=== PATIENT | male | born 1970 | race Caucasian/White ===

== ENCOUNTER 2017-01-03 08:00 | Outpatient (CLI) | payer OTHER ==
[2017-01-03 14:07] LABS: ALBUMIN/GLOBULIN RATIO 1.5 (1.0-2.2); BILIRUBIN,TOTAL 0.6 mg/dL (0.2-1.0); BUN - BLOOD UREA NITROGEN 11 mg/dL (6-20); CALCIUM 9.5 mg/dL (8.5-10.3); CARBON DIOXIDE - CO2 26 mmol/L (21-32); CHLORIDE 101 mmol/L (101-111); CHOL/HDL RATIO 2.9 (<5.0); CHOLESTEROL 156 mg/dL; CREATININE 0.6 mg/dL (0.6-1.2); GFR - MDRD 146 (>89); GLUCOSE 107 mg/dL (70-100); HDL CHOLESTEROL 54 mg/dL; LDL/HDL RATIO 1.6 (<3.6); POTASSIUM 3.8 mmol/L (3.5-5.0); SODIUM 137 mmol/L (135-145); TOTAL PROTEIN 7.7 g/dL (6.7-8.2); TRIGLYCERIDES 80 mg/dL; VLDL CHOLESTEROL 16 mg/dL
[2017-01-03 14:13] LABS: HEMOGLOBIN A1C 0.92 g/dL
== END 2017-01-03 08:01 | disposition home or self-care (01) ==
LOC: LAB.WCP 08:00
PROVIDERS: ATTEND Family Medicine
DX: E11.9 Type 2 diabetes mellitus without complications (principal); Z72.0 Tobacco use
CPT/HCPCS: 36415; 80053; 80061; 82043; 83036

== ENCOUNTER 2017-03-28 12:52 | Outpatient (CLI) | payer OTHER ==
[2017-03-28 12:49] LABS: ALBUMIN/GLOBULIN RATIO 1.6 (1.0-2.2); BILIRUBIN,TOTAL 0.8 mg/dL (0.2-1.0); CALCIUM 9.7 mg/dL (8.5-10.3); CREATININE 0.7 mg/dL (0.6-1.2); POTASSIUM 3.8 mmol/L (3.5-5.0); TOTAL PROTEIN 7.9 g/dL (6.7-8.2)
[2017-03-28 12:55] LABS: HEMOGLOBIN A1C 1.01 g/dL
== END 2017-03-28 12:53 | disposition home or self-care (01) ==
LOC: LAB.WCP 12:52
PROVIDERS: ATTEND Family Medicine
DX: E11.9 Type 2 diabetes mellitus without complications (principal)
CPT/HCPCS: 36415; 80053; 82043; 83036

== ENCOUNTER 2017-11-04 07:50 | Outpatient (CLI) | payer OTHER ==
[2017-11-04 13:01] LABS: ALBUMIN 3.8 g/dL (3.2-5.5); BILIRUBIN,TOTAL 0.4 mg/dL (0.2-1.0); CALCIUM 8.8 mg/dL (8.5-10.3); CREATININE 0.7 mg/dL (0.6-1.2); TOTAL PROTEIN 7.5 g/dL (6.7-8.2)
[2017-11-04 13:09] LABS: HB2 TOTAL 17.9 g/dL; HEMOGLOBIN A1C 1.07 g/dL; HEMOGLOBIN A1C % 7.6 % (4.6-6.2)
== END 2017-11-04 07:51 | disposition home or self-care (01) ==
LOC: LAB.WCP 07:50
PROVIDERS: ATTEND Family Medicine
DX: E11.9 Type 2 diabetes mellitus without complications (principal)
CPT/HCPCS: 36415; 80053; 83036

== ENCOUNTER 2018-01-27 08:48 | Outpatient (CLI) | payer OTHER ==
[2018-01-27 13:37] LABS: ALBUMIN 4.3 g/dL (3.2-5.5); ALBUMIN/GLOBULIN RATIO 1.3 (1.0-2.2); BILIRUBIN,TOTAL 0.9 mg/dL (0.2-1.0); CALCIUM 8.7 mg/dL (8.5-10.3); CREATININE 0.6 mg/dL (0.6-1.2); TOTAL PROTEIN 7.5 g/dL (6.7-8.2)
[2018-01-27 14:07] LABS: HB2 TOTAL 17.1 g/dL; HEMOGLOBIN A1C 1.05 g/dL; HEMOGLOBIN A1C % 7.8 % (4.6-6.2)
== END 2018-01-27 08:49 | disposition home or self-care (01) ==
LOC: LAB.WCP 08:48
PROVIDERS: ATTEND Family Medicine
DX: Z83.3 Family history of diabetes mellitus (principal)
CPT/HCPCS: 36415; 80053; 83036

== ENCOUNTER 2018-05-13 09:30 | Outpatient (CLI) | payer OTHER ==
[2018-05-13 12:52] LABS: CALCIUM 8.9 mg/dL (8.5-10.3); CREATININE 0.7 mg/dL (0.6-1.2)
[2018-05-13 13:16] LABS: HB2 TOTAL 16.5 g/dL; HEMOGLOBIN A1C 1.07 g/dL; HEMOGLOBIN A1C % 8.1 % (4.6-6.2)
== END 2018-05-13 23:59 | disposition home or self-care (01) ==
LOC: LAB.WCP 09:30
PROVIDERS: ATTEND Physician Assistant
DX: Z83.3 Family history of diabetes mellitus (principal)
CPT/HCPCS: 36415; 80048; 83036

== ENCOUNTER 2018-08-27 09:05 | Outpatient (CLI) | payer OTHER ==
[2018-08-27 13:22] LABS: CALCIUM 9.5 mg/dL (8.5-10.3); CREATININE 0.7 mg/dL (0.6-1.2)
[2018-08-27 14:02] LABS: HEMOGLOBIN A1C 1.09 g/dL
== END 2018-08-27 09:06 | disposition home or self-care (01) ==
LOC: LAB.WCP 09:05
PROVIDERS: ATTEND Family Medicine
DX: E78.5 Hyperlipidemia, unspecified (principal); E11.9 Type 2 diabetes mellitus without complications
CPT/HCPCS: 36415; 80048; 83036

== ENCOUNTER 2018-12-18 08:00 | Outpatient (CLI) | payer OTHER ==
[2018-12-18 12:33] LABS: BASOPHILS # (AUTO) 0.1 10^3/uL (0.0-0.1); BASOPHILS % (AUTO) 0.8 %; EOSINOPHILS # (AUTO) 0.2 10^3/uL (0.0-0.7); EOSINOPHILS % (AUTO) 2.2 %; HGB - HEMOGLOBIN 15.5 g/dL (14.0-18.0); LYMPHOCYTES # (AUTO) 2.7 10^3/uL (1.5-3.5); LYMPHOCYTES % (AUTO) 29.6 %; MEAN CORPUSCULAR VOLUME 87.8 fL (80.0-94.0); MONOCYTES # (AUTO) 0.8 10^3/uL (0.0-1.0); MONOCYTES % (AUTO) 8.9 %; NEUTROPHILS # (AUTO) 5.4 10^3/uL (1.5-6.6); NEUTROPHILS % (AUTO) 58.1 %; PLT - PLATELET COUNT 323 10^3/uL (130-450); RED BLOOD COUNT 5.34 10^6/uL (4.70-6.10); RED CELL DISTRIBUTION WIDTH 13.3 % (12.0-15.0); WHITE BLOOD COUNT 9.2 x10^3/uL (4.8-10.8)
[2018-12-18 12:44] LABS: ALBUMIN 4.5 g/dL (3.2-5.5); ALBUMIN/GLOBULIN RATIO 1.4 (1.0-2.2); ALKALINE PHOSPHATASE 50 IU/L (42-121); ALT ALANINE AMINOTRANSFERASE 72 IU/L (10-60); AST ASPARTATE AMINOTRANSFERASE 35 IU/L (10-42); BILIRUBIN,TOTAL 0.7 mg/dL (0.2-1.0); BUN - BLOOD UREA NITROGEN 13 mg/dL (6-20); CARBON DIOXIDE - CO2 28 mmol/L (21-32); CHLORIDE 102 mmol/L (101-111); CHOL/HDL RATIO 3.5 (<5.0); CHOLESTEROL 182 mg/dL; CREATININE 0.7 mg/dL (0.6-1.2); GFR - MDRD 121 (>89); GLUCOSE 107 mg/dL (70-100); HDL CHOLESTEROL 52 mg/dL; LDL CHOLESTEROL,CALCULATED 112 mg/dL; LDL/HDL RATIO 2.2 (<3.6); SODIUM 137 mmol/L (135-145); TOTAL PROTEIN 7.7 g/dL (6.7-8.2); VLDL CHOLESTEROL 18 mg/dL
[2018-12-18 12:45] LABS: CREATININE,URINE 42.8 mg/dL; MICROALBUM/CREATININE RATIO,UR 49.1 ug/mg (<30.0); MICROALBUMIN,URINE 2.1 mg/dL (0-300.0)
[2018-12-18 13:13] LABS: HB2 TOTAL 16.1 g/dL; HEMOGLOBIN A1C 1.24 g/dL; HEMOGLOBIN A1C % 9.2 % (4.6-6.2)
== END 2018-12-18 23:59 | disposition home or self-care (01) ==
LOC: LAB.WCP 08:00
PROVIDERS: ATTEND Family Medicine
DX: E11.9 Type 2 diabetes mellitus without complications (principal); E78.5 Hyperlipidemia, unspecified
CPT/HCPCS: 36415; 80053; 80061; 82043; 82570; 83036; 83721; 85025

== ENCOUNTER 2019-06-15 08:42 | Outpatient (CLI) | payer OTHER ==
[2019-06-15 12:17] LABS: CALCIUM 8.9 mg/dL (8.5-10.3); CREATININE 0.8 mg/dL (0.6-1.2)
[2019-06-15 12:30] LABS: CREATININE,URINE 89.1 mg/dL; HB2 TOTAL 16.9 g/dL; HEMOGLOBIN A1C 1.02 g/dL; HEMOGLOBIN A1C % 7.7 % (4.6-6.2); MICROALBUMIN,URINE 3.3 mg/dL (0-300.0)
== END 2019-06-15 23:59 | disposition home or self-care (01) ==
LOC: LAB.WCP 08:42
PROVIDERS: ATTEND Family Medicine
DX: E11.9 Type 2 diabetes mellitus without complications (principal); E78.5 Hyperlipidemia, unspecified
CPT/HCPCS: 36415; 80048; 82043; 82570; 83036

== ENCOUNTER 2019-09-12 16:25 | Emergency (ER) | payer OTHER ==
[2019-09-12 16:35] VITALS: BP 129/67
--- NOTE | 2019-09-12 16:50 | ED Physician Documentation ---
History of Present Illness - Stated complaint Stated Complaint: LT EAR IRRITATION - Chief complaint Chief Complaint: Heent - History obtained from History obtained from: Patient (48-year-old gentleman with diabetes presents with 2 days of left ear pain and drainage. He says he had it once before about 8 years ago, but does not remember the specific diagnosis or treatment. He denies fevers. No other upper respiratory symptoms. The entirety of the history was taken using the [employer] leach runner tablet as the patient speaks Tagalog.) Review of Systems Constitutional: denies: Fever, Chills Ears: denies: Loss of hearing, Ear pain Nose: denies: Rhinorrhea / runny nose, Congestion PD PAST MEDICAL HISTORY - Past Medical History Past Medical History: Yes Endocrine/Autoimmune: Type 2 diabetes - Past Surgical History Past Surgical History: No - Present Medications Home Medications: Ambulatory Orders Medication Instructions Recorded Confirmed Ciprofloxacin HCl [Cipro] 500 mg PO BID #20 tablet 09/12/19 Neomycin/Polymyx/Hc Otic Drops 4 drops OT TID #1 bottle 09/12/19 [Cortisporin Ear Susp] - Allergies Allergies/Adverse Reactions: Allergies Allergy/AdvReac Type Severity Reaction Status Date / Time No Known Drug Allergies Allergy Verified 09/12/19 16:28 - Social History Does the pt smoke?: No Smoking Status: Never smoker Does the pt drink ETOH?: No Does the pt have substance abuse?: No - Immunizations Immunizations are current?: Yes - POLST Patient has POLST: No PD ED PE NORMAL - Vitals Vital signs reviewed: Yes - General General: Alert and oriented X 3, No acute distress - HEENT HEENT: Other (He has external otitis on the left, not occlusive. No mastoid tenderness. No obvious adenopathy.) - Neuro Neuro: Alert and oriented X 3, Normal speech Results - Vitals Vitals: Vital Signs - 24 hr 09/12/19 16:29 Temperature 37 C Heart Rate 87 Respiratory 18 Rate Blood Pressure 129/67 O2 Saturation 98 Oxygen O2 Source Room air PD MEDICAL DECISION MAKING - ED course ED course: This is a gentleman with diabetes and external otitis, the diabetes does merit treatment with oral antibiotics given the increased risk of malignant otitis externa or mastoiditis with the underlying diabetes. Departure - Departure Disposition: 01 Home, Self Care Clinical Impression: External otitis of left ear Qualifiers: Otitis externa type: other infective Chronicity: acute Qualified Code(s): H60.392 - Other infective otitis externa, left ear Condition: Good Record reviewed to determine appropriate education?: Yes Instructions: ED Otitis Externa Prescriptions: Ciprofloxacin HCl [Cipro] 500 mg PO BID #20 tablet Neomycin/Polymyx/Hc Otic Drops [Cortisporin Ear Susp] 4 drops OT TID #1 bottle Comments: Karen meléndez-follow-up appointment, ariane almaraz appointment. elva Crain sintoarabella tatum. Discharge Date/Time: 09/12/19 17:07
== END 2019-09-12 17:07 | disposition home or self-care (01) ==
LOC: ED 16:25
DX: H60.392 Other infective otitis externa, left ear (principal); E11.9 Type 2 diabetes mellitus without complications
CPT/HCPCS: 99282

== ENCOUNTER 2019-12-07 09:44 | Outpatient (CLI) | payer OTHER ==
[2019-12-07 12:11] LABS: BASOPHILS # (AUTO) 0.1 10^3/uL (0.0-0.1); BASOPHILS % (AUTO) 0.9 %; EOSINOPHILS # (AUTO) 0.2 10^3/uL (0.0-0.7); EOSINOPHILS % (AUTO) 2.6 %; HGB - HEMOGLOBIN 15.7 g/dL (14.0-18.0); LYMPHOCYTES # (AUTO) 2.3 10^3/uL (1.5-3.5); LYMPHOCYTES % (AUTO) 24.9 %; MEAN CORPUSCULAR HEMOGLOBIN 30.5 pg (27.0-31.0); MEAN CORPUSCULAR HGB CONC 34.5 g/dL (32.0-36.0); MEAN CORPUSCULAR VOLUME 88.3 fL (80.0-94.0); MEAN PLATELET VOLUME 9.9 fL (7.4-11.4); MONOCYTES # (AUTO) 0.6 10^3/uL (0.0-1.0); MONOCYTES % (AUTO) 6.4 %; NEUTROPHILS % (AUTO) 64.9 %; PLT - PLATELET COUNT 323 10^3/uL (130-450); RED BLOOD COUNT 5.15 10^6/uL (4.70-6.10); RED CELL DISTRIBUTION WIDTH 13.1 % (12.0-15.0); WHITE BLOOD COUNT 9.3 x10^3/uL (4.8-10.8)
[2019-12-07 12:41] LABS: ALBUMIN 4.6 g/dL (3.2-5.5); ALBUMIN/GLOBULIN RATIO 1.6 (1.0-2.2); BILIRUBIN,TOTAL 0.7 mg/dL (0.2-1.0); CALCIUM 9.2 mg/dL (8.5-10.3); CREATININE 0.7 mg/dL (0.6-1.2); TOTAL PROTEIN 7.5 g/dL (6.7-8.2)
[2019-12-07 12:52] LABS: HB2 TOTAL 16.6 g/dL; HEMOGLOBIN A1C 0.84 g/dL; HEMOGLOBIN A1C % 6.8 % (4.6-6.2)
== END 2019-12-07 23:59 | disposition home or self-care (01) ==
LOC: LAB.WCP 09:44
PROVIDERS: ATTEND Physician Assistant
DX: E11.9 Type 2 diabetes mellitus without complications (principal)
CPT/HCPCS: 36415; 80053; 83036; 85025

== ENCOUNTER 2020-05-02 08:00 | Outpatient (CLI) | payer OTHER ==
[2020-05-02 12:21] LABS: CREATININE,URINE 28.7 mg/dL; MICROALBUM/CREATININE RATIO,UR 20.9 ug/mg (<30.0); MICROALBUMIN,URINE 0.6 mg/dL (0-300.0)
[2020-05-02 13:07] LABS: HEMOGLOBIN A1c% 7.7 % (4.27-6.07)
[2020-05-02 13:20] LABS: CALCIUM 9.3 mg/dL (8.5-10.3); CREATININE 0.7 mg/dL (0.6-1.2)
== END 2020-05-02 23:59 ==
LOC: LAB.WCP 08:00
PROVIDERS: ATTEND Family Medicine
DX: E11.9 Type 2 diabetes mellitus without complications (principal)
CPT/HCPCS: 36415; 80048; 82043; 82570; 83036

== ENCOUNTER 2020-09-21 08:00 | Outpatient (CLI) | payer OTHER ==
[2020-09-21 12:28] LABS: ALBUMIN 4.5 g/dL (3.2-5.5); ALBUMIN/GLOBULIN RATIO 1.6 (1.0-2.2); ALKALINE PHOSPHATASE 49 IU/L (42-121); ALT ALANINE AMINOTRANSFERASE 40 IU/L (10-60); AST ASPARTATE AMINOTRANSFERASE 21 IU/L (10-42); BILIRUBIN,TOTAL 0.6 mg/dL (0.2-1.0); BUN - BLOOD UREA NITROGEN 15 mg/dL (6-20); CALCIUM 8.6 mg/dL (8.5-10.3); CARBON DIOXIDE - CO2 26 mmol/L (21-32); CHLORIDE 100 mmol/L (101-111); CHOLESTEROL 158 mg/dL; CREATININE 0.6 mg/dL (0.6-1.2); GFR - MDRD 144 (>89); GLUCOSE 216 mg/dL (70-100); HDL CHOLESTEROL 53 mg/dL; LDL CHOLESTEROL,CALCULATED 89 mg/dL; LDL/HDL RATIO 1.7 (<3.6); POTASSIUM 4.6 mmol/L (3.5-5.0); SODIUM 134 mmol/L (135-145); TOTAL PROTEIN 7.4 g/dL (6.7-8.2); TRIGLYCERIDES 82 mg/dL; VLDL CHOLESTEROL 16 mg/dL
[2020-09-21 12:40] LABS: THYROID STIMULATING HORMONE 1.95 uIU/mL (0.34-5.60)
[2020-09-21 12:41] LABS: ESTIMATED AVERAGE GLUCOSE 214 mg/dL (70-100); HEMOGLOBIN A1c% 9.1 % (4.27-6.07)
[2020-09-21 13:15] LABS: CREATININE,URINE 104.3 mg/dL; MICROALBUM/CREATININE RATIO,UR 70.9 ug/mg (<30.0); MICROALBUMIN,URINE 7.4 mg/dL (0-300.0)
== END 2020-09-21 23:59 | disposition home or self-care (01) ==
LOC: LAB.WCP 08:00
PROVIDERS: ATTEND Family Medicine
DX: E11.9 Type 2 diabetes mellitus without complications (principal); E78.5 Hyperlipidemia, unspecified
CPT/HCPCS: 36415; 80053; 80061; 82043; 82570; 83036; 83721; 84443

== ENCOUNTER 2021-01-09 09:13 | Outpatient (CLI) | payer OTHER ==
[2021-01-09 12:32] LABS: CALCIUM 9.4 mg/dL (8.5-10.3); CREATININE 0.7 mg/dL (0.6-1.2)
[2021-01-09 14:14] LABS: ESTIMATED AVERAGE GLUCOSE 180 mg/dL (70-100); HEMOGLOBIN A1c% 7.9 % (4.27-6.07)
== END 2021-01-09 23:59 | disposition home or self-care (01) ==
LOC: LAB.WCP 09:13
PROVIDERS: ATTEND Family Medicine
DX: R80.9 Proteinuria, unspecified (principal); E11.9 Type 2 diabetes mellitus without complications
CPT/HCPCS: 36415; 80048; 83036

== ENCOUNTER 2021-04-03 09:31 | Outpatient (CLI) | payer OTHER ==
[2021-04-03 12:47] LABS: CALCIUM 9.2 mg/dL (8.5-10.3); CREATININE 0.6 mg/dL (0.6-1.2); POTASSIUM 3.6 mmol/L (3.5-5.0)
[2021-04-03 12:57] LABS: ESTIMATED AVERAGE GLUCOSE 180 mg/dL (70-100); HEMOGLOBIN A1c% 7.9 % (4.27-6.07)
[2021-04-03 12:59] LABS: CREATININE,URINE 69.7 mg/dL; MICROALBUM/CREATININE RATIO,UR 48.8 ug/mg (<30.0); MICROALBUMIN,URINE 3.4 mg/dL (0-300.0)
== END 2021-04-03 23:59 | disposition home or self-care (01) ==
LOC: LAB.WCP 09:31
PROVIDERS: ATTEND Family Medicine
DX: E11.65 Type 2 diabetes mellitus with hyperglycemia (principal); R80.9 Proteinuria, unspecified
CPT/HCPCS: 36415; 80048; 82043; 82570; 83036

== ENCOUNTER 2021-06-26 09:03 | Outpatient (CLI) | payer OTHER ==
[2021-06-26 13:00] LABS: BASOPHILS % (AUTO) 0.4 %; EOSINOPHILS # (AUTO) 0.3 10^3/uL (0.0-0.7); EOSINOPHILS % (AUTO) 2.6 %; HCT - HEMATOCRIT 44.4 % (42.0-52.0); HGB - HEMOGLOBIN 15.5 g/dL (14.0-18.0); LYMPHOCYTES # (AUTO) 2.3 10^3/uL (1.5-3.5); LYMPHOCYTES % (AUTO) 21.6 %; MEAN CORPUSCULAR HEMOGLOBIN 30.5 pg (27.0-31.0); MEAN CORPUSCULAR HGB CONC 34.9 g/dL (32.0-36.0); MEAN CORPUSCULAR VOLUME 87.4 fL (80.0-94.0); MEAN PLATELET VOLUME 10.2 fL (7.4-11.4); MONOCYTES # (AUTO) 0.7 10^3/uL (0.0-1.0); MONOCYTES % (AUTO) 6.2 %; NEUTROPHILS # (AUTO) 7.3 10^3/uL (1.5-6.6); NEUTROPHILS % (AUTO) 68.9 %; PLT - PLATELET COUNT 320 10^3/uL (130-450); RED BLOOD COUNT 5.08 10^6/uL (4.70-6.10); RED CELL DISTRIBUTION WIDTH 13.1 % (12.0-15.0); WHITE BLOOD COUNT 10.5 x10^3/uL (4.8-10.8)
[2021-06-26 13:19] LABS: ALBUMIN 4.5 g/dL (3.2-5.5); ALBUMIN/GLOBULIN RATIO 1.5 (1.0-2.2); ALKALINE PHOSPHATASE 45 IU/L (42-121); ALT ALANINE AMINOTRANSFERASE 37 IU/L (10-60); AST ASPARTATE AMINOTRANSFERASE 23 IU/L (10-42); BILIRUBIN,TOTAL 0.6 mg/dL (0.2-1.0); BUN - BLOOD UREA NITROGEN 15 mg/dL (6-20); CALCIUM 9.4 mg/dL (8.5-10.3); CARBON DIOXIDE - CO2 26 mmol/L (21-32); CHLORIDE 99 mmol/L (101-111); CHOL/HDL RATIO 3.1 (<5.0); CHOLESTEROL 185 mg/dL; CREATININE 0.8 mg/dL (0.6-1.2); GFR - MDRD 103 (>89); GLUCOSE 104 mg/dL (70-100); HDL CHOLESTEROL 60 mg/dL; LDL CHOLESTEROL,CALCULATED 108 mg/dL; LDL/HDL RATIO 1.8 (<3.6); POTASSIUM 3.9 mmol/L (3.5-5.0); SODIUM 136 mmol/L (135-145); TOTAL PROTEIN 7.5 g/dL (6.7-8.2); TRIGLYCERIDES 83 mg/dL; VLDL CHOLESTEROL 17 mg/dL
[2021-06-26 13:27] LABS: THYROID STIMULATING HORMONE 2.28 uIU/mL (0.34-5.60)
[2021-06-26 13:31] LABS: CREATININE,URINE 17.2 mg/dL; MICROALBUM/CREATININE RATIO,UR 52.3 ug/mg (<30.0); MICROALBUMIN,URINE 0.9 mg/dL (0-300.0)
[2021-06-26 16:30] LABS: ESTIMATED AVERAGE GLUCOSE 183 mg/dL (70-100)
== END 2021-06-26 09:04 | disposition home or self-care (01) ==
LOC: LAB.N 09:03
PROVIDERS: ATTEND Family Medicine
DX: E11.65 Type 2 diabetes mellitus with hyperglycemia (principal); R80.9 Proteinuria, unspecified
CPT/HCPCS: 36415; 80053; 80061; 82043; 82570; 83036; 83721; 84443; 85025

== ENCOUNTER 2022-01-01 08:57 | Outpatient (CLI) | payer OTHER | END 2022-01-01 08:58 | disposition home or self-care (01) | LOC: LAB.N 08:57 | PROVIDERS: ATTEND Family Medicine | DX: Z53.9 Procedure and treatment not carried out, unspecified reason (principal) | CPT/HCPCS: 36415; 80048; 80061; 82043; 82570; 83036; 83721; 85025 ==

== ENCOUNTER 2022-01-08 08:40 | Outpatient (CLI) | payer OTHER ==
[2022-01-08 12:45] LABS: BASOPHILS # (AUTO) 0.1 10^3/uL (0.0-0.1); BASOPHILS % (AUTO) 0.6 %; EOSINOPHILS # (AUTO) 0.2 10^3/uL (0.0-0.7); EOSINOPHILS % (AUTO) 2.3 %; HCT - HEMATOCRIT 45.6 % (42.0-52.0); HGB - HEMOGLOBIN 15.9 g/dL (14.0-18.0); LYMPHOCYTES # (AUTO) 1.9 10^3/uL (1.5-3.5); LYMPHOCYTES % (AUTO) 20.6 %; MEAN CORPUSCULAR HEMOGLOBIN 30.1 pg (27.0-31.0); MEAN CORPUSCULAR HGB CONC 34.9 g/dL (32.0-36.0); MEAN CORPUSCULAR VOLUME 86.4 fL (80.0-94.0); MEAN PLATELET VOLUME 10.1 fL (7.4-11.4); MONOCYTES # (AUTO) 0.7 10^3/uL (0.0-1.0); MONOCYTES % (AUTO) 7.6 %; NEUTROPHILS # (AUTO) 6.5 10^3/uL (1.5-6.6); NEUTROPHILS % (AUTO) 68.6 %; PLT - PLATELET COUNT 307 10^3/uL (130-450); RED BLOOD COUNT 5.28 10^6/uL (4.70-6.10); RED CELL DISTRIBUTION WIDTH 12.9 % (12.0-15.0); WHITE BLOOD COUNT 9.4 x10^3/uL (4.8-10.8)
[2022-01-08 13:12] LABS: ESTIMATED AVERAGE GLUCOSE 154 mg/dL (70-100)
[2022-01-08 13:16] LABS: BUN - BLOOD UREA NITROGEN 16 mg/dL (6-20); CALCIUM 9.7 mg/dL (8.5-10.3); CARBON DIOXIDE - CO2 26 mmol/L (21-32); CHLORIDE 99 mmol/L (101-111); CHOL/HDL RATIO 2.8 (<5.0); CHOLESTEROL 158 mg/dL; CREATININE 0.7 mg/dL (0.6-1.2); GFR - MDRD 120 (>89); GLUCOSE 113 mg/dL (70-100); HDL CHOLESTEROL 56 mg/dL; LDL CHOLESTEROL,CALCULATED 86 mg/dL; LDL/HDL RATIO 1.5 (<3.6); POTASSIUM 4.3 mmol/L (3.5-5.0); SODIUM 134 mmol/L (135-145); TRIGLYCERIDES 79 mg/dL; VLDL CHOLESTEROL 16 mg/dL
== END 2022-01-08 08:41 | disposition home or self-care (01) ==
LOC: LAB.N 08:40
PROVIDERS: ATTEND Family Medicine
DX: E11.65 Type 2 diabetes mellitus with hyperglycemia (principal); E78.5 Hyperlipidemia, unspecified
CPT/HCPCS: 36415; 80048; 80061; 83036; 83721; 85025

== ENCOUNTER 2022-06-18 08:34 | Outpatient (CLI) | payer OTHER ==
[2022-06-18 13:12] LABS: CALCIUM 9.1 mg/dL (8.5-10.3); CREATININE 0.6 mg/dL (0.6-1.2); POTASSIUM 3.6 mmol/L (3.5-5.0)
[2022-06-18 13:20] LABS: CREATININE,URINE 24.8 mg/dL; MICROALBUM/CREATININE RATIO,UR 56.5 ug/mg (<30.0); MICROALBUMIN,URINE 1.4 mg/dL (0-300.0)
[2022-06-18 13:36] LABS: ESTIMATED AVERAGE GLUCOSE 203 mg/dL (70-100); HEMOGLOBIN A1c% 8.7 % (4.27-6.07)
== END 2022-06-18 08:35 | disposition home or self-care (01) ==
LOC: LAB.N 08:34
PROVIDERS: ATTEND Family Medicine
DX: E11.9 Type 2 diabetes mellitus without complications (principal); R80.9 Proteinuria, unspecified
CPT/HCPCS: 36415; 80048; 82043; 82570; 83036

== ENCOUNTER 2022-10-03 07:20 | Outpatient (CLI) | payer OTHER ==
[2022-10-03 12:06] LABS: ESTIMATED AVERAGE GLUCOSE 192 mg/dL (70-100); HEMOGLOBIN A1c% 8.3 % (4.27-6.07)
[2022-10-03 12:29] LABS: CREATININE,URINE 181.8 mg/dL; MICROALBUM/CREATININE RATIO,UR 43.5 ug/mg (<30.0); MICROALBUMIN,URINE 7.9 mg/dL (0-300.0)
[2022-10-03 12:44] LABS: CALCIUM 9.2 mg/dL (8.5-10.3); CREATININE 0.7 mg/dL (0.6-1.2); POTASSIUM 4.5 mmol/L (3.5-5.0)
== END 2022-10-03 07:21 | disposition home or self-care (01) ==
LOC: LAB.N 07:20
PROVIDERS: ATTEND Family Medicine
DX: E11.65 Type 2 diabetes mellitus with hyperglycemia (principal); R80.9 Proteinuria, unspecified
CPT/HCPCS: 36415; 80048; 82043; 82570; 83036

== ENCOUNTER 2022-12-31 09:47 | Outpatient (CLI) | payer OTHER ==
[2022-12-31 13:11] LABS: ESTIMATED AVERAGE GLUCOSE 151 mg/dL (70-100); HEMOGLOBIN A1c% 6.9 % (4.27-6.07)
[2022-12-31 13:12] LABS: CREATININE 0.7 mg/dL (0.6-1.3); POTASSIUM 3.9 mmol/L (3.5-4.5)
[2022-12-31 13:23] LABS: CREATININE,URINE 43.4 mg/dL; MICROALBUM/CREATININE RATIO,UR 43.8 ug/mg (<30.0); MICROALBUMIN,URINE 1.9 mg/dL
== END 2022-12-31 09:48 | disposition home or self-care (01) ==
LOC: LAB.N 09:47
PROVIDERS: ATTEND Family Medicine
DX: E11.65 Type 2 diabetes mellitus with hyperglycemia (principal)
CPT/HCPCS: 36415; 80048; 82043; 82570; 83036

== ENCOUNTER 2023-06-17 08:23 | Outpatient (CLI) | payer OTHER ==
[2023-06-17 12:26] LABS: CALCIUM 9.6 mg/dL (8.5-10.3); CREATININE 0.7 mg/dL (0.6-1.3); POTASSIUM 3.8 mmol/L (3.5-4.5)
[2023-06-17 12:30] LABS: CREATININE,URINE 20.1 mg/dL; MICROALBUM/CREATININE RATIO,UR 59.7 ug/mg (<30.0); MICROALBUMIN,URINE 1.2 mg/dL
[2023-06-17 12:51] LABS: ESTIMATED AVERAGE GLUCOSE 200 mg/dL (70-100); HEMOGLOBIN A1c% 8.6 % (4.27-6.07)
== END 2023-06-17 08:24 | disposition home or self-care (01) ==
LOC: LAB.N 08:23
PROVIDERS: ATTEND Family Medicine
DX: E11.65 Type 2 diabetes mellitus with hyperglycemia (principal); R80.9 Proteinuria, unspecified
CPT/HCPCS: 36415; 80048; 82043; 82570; 83036

== ENCOUNTER 2023-06-25 08:00 | Outpatient (CLI) | payer OTHER ==
[2023-06-25 12:18] LABS: BILIRUBIN,URINE NEGATIVE (NEGATIVE); GLUCOSE, URINE (UA) >=1000 mg/dL (NEGATIVE); KETONES,URINE (UA) NEGATIVE (NEGATIVE); LEUKOCYTE ESTERASE, URINE NEGATIVE (NEGATIVE); NITRITE,URINE NEGATIVE (NEGATIVE); OCCULT BLOOD,URINE NEGATIVE (NEGATIVE); PROTEIN,URINE NEGATIVE (NEGATIVE); UROBILINOGEN,URINE 0.2 (NORMAL) E.U./dL (NORMAL)
[2023-06-25 12:19] LABS: CLARITY,URINE CLEAR (CLEAR)
[2023-06-25 12:35] LABS: BACTERIA,URINE Few /HPF (None Seen); CASTS, URINE 0-2 Hyaline Casts /LPF; RBC,URINE None Seen /HPF (0-5); SQUAMOUS EPITHELIAL CELL,UR FEW Squamous (<= Few); WBC,URINE 0-3 /HPF (0-3)
== END 2023-06-25 23:59 | disposition home or self-care (01) ==
LOC: LAB.WCP 08:00
PROVIDERS: ATTEND Physician Assistant
DX: R35.0 Frequency of micturition (principal)
CPT/HCPCS: 81001; 87086

== ENCOUNTER 2023-09-23 08:03 | Outpatient (CLI) | payer OTHER ==
[2023-09-23 12:07] LABS: BASOPHILS # (AUTO) 0.1 10^3/uL (0.0-0.1); BASOPHILS % (AUTO) 0.8 %; EOSINOPHILS # (AUTO) 0.2 10^3/uL (0.0-0.7); EOSINOPHILS % (AUTO) 2.1 %; HCT - HEMATOCRIT 44.2 % (42.0-52.0); HGB - HEMOGLOBIN 15.1 g/dL (14.0-18.0); LYMPHOCYTES # (AUTO) 2.1 10^3/uL (1.5-3.5); LYMPHOCYTES % (AUTO) 24.2 %; MEAN CORPUSCULAR HEMOGLOBIN 29.8 pg (27.0-31.0); MEAN CORPUSCULAR HGB CONC 34.2 g/dL (32.0-36.0); MEAN CORPUSCULAR VOLUME 87.4 fL (80.0-94.0); MEAN PLATELET VOLUME 9.6 fL (7.4-11.4); MONOCYTES # (AUTO) 0.5 10^3/uL (0.0-1.0); MONOCYTES % (AUTO) 6.3 %; NEUTROPHILS # (AUTO) 5.6 10^3/uL (1.5-6.6); NEUTROPHILS % (AUTO) 66.1 %; PLT - PLATELET COUNT 352 10^3/uL (130-450); RED BLOOD COUNT 5.06 10^6/uL (4.70-6.10); RED CELL DISTRIBUTION WIDTH 13.4 % (12.0-15.0); WHITE BLOOD COUNT 8.5 x10^3/uL (4.8-10.8)
[2023-09-23 12:35] LABS: ALBUMIN 4.6 g/dL (3.2-5.5); ALBUMIN/GLOBULIN RATIO 1.6 (1.0-2.2); ALKALINE PHOSPHATASE 51 IU/L (42-121); ALT ALANINE AMINOTRANSFERASE 42 IU/L (10-60); AST ASPARTATE AMINOTRANSFERASE 28 IU/L (10-42); BILIRUBIN,TOTAL 0.5 mg/dL (0.2-1.0); BUN - BLOOD UREA NITROGEN 12 mg/dL (6-20); CALCIUM 9.7 mg/dL (8.5-10.3); CARBON DIOXIDE - CO2 26 mmol/L (21-32); CHLORIDE 104 mmol/L (101-111); CHOL/HDL RATIO 2.9 (<5.0); CHOLESTEROL 156 mg/dL; CREATININE 0.7 mg/dL (0.6-1.3); GFR - MDRD 119 (>89); GLUCOSE 73 mg/dL (74-104); HDL CHOLESTEROL 54 mg/dL; LDL CHOLESTEROL,CALCULATED 82 mg/dL; LDL/HDL RATIO 1.5 (<3.6); POTASSIUM 3.6 mmol/L (3.5-4.5); SODIUM 137 mmol/L (135-145); TOTAL PROTEIN 7.4 g/dL (6.4-8.9); TRIGLYCERIDES 102 mg/dL (48-352); VLDL CHOLESTEROL 20 mg/dL
[2023-09-23 12:36] LABS: CREATININE,URINE 14.6 mg/dL; MICROALBUM/CREATININE RATIO,UR 54.8 ug/mg (<30.0); MICROALBUMIN,URINE 0.8 mg/dL
[2023-09-23 12:42] LABS: ESTIMATED AVERAGE GLUCOSE 243 mg/dL (70-100); HEMOGLOBIN A1c% 10.1 % (4.27-6.07)
[2023-09-23 12:43] LABS: THYROID STIMULATING HORMONE 1.17 uIU/mL (0.34-5.60)
== END 2023-09-23 08:04 | disposition home or self-care (01) ==
LOC: LAB.N 08:03
PROVIDERS: ATTEND Physician Assistant
DX: E11.65 Type 2 diabetes mellitus with hyperglycemia (principal); E78.5 Hyperlipidemia, unspecified; R80.9 Proteinuria, unspecified; R35.0 Frequency of micturition
CPT/HCPCS: 36415; 80053; 80061; 82043; 82570; 83036; 83721; 84153; 84443; 85025

== ENCOUNTER 2023-12-06 06:12 | Day surgery (SDC) | payer OTHER ==
[2023-12-06] MEDS: LACTATED RINGERS 1,000 ML IV ONE (06:43)
[2023-12-06] MEDS ORDERED: PROPOFOL 500 MG/50 ML 500 MG/50 ML VIAL ONE (07:07)
[2023-12-06] MEDS ORDERED: LIDOCAINE-MPF 2% 5 ML VIAL ONE (07:07)
--- NOTE | 2023-12-06 07:24 | ANESTHESIA ---
Pre-Anesthesia VS, & Labs - Diagnosis screening - Procedure colonoscopy Vital Signs: Temp Pulse Resp BP Pulse Ox O2 Flow Rate 36.2 C L 73 18 129/76 100 12/06/23 06:47 12/06/23 06:47 12/06/23 06:47 12/06/23 06:47 12/06/23 06:47 Height: 5 ft 1 in Weight (kg): 71.4 kg Body Mass Index: 29.7 BMI Classification: Overweight - NPO Other (prep last a 4am) - Lab Results Current Lab Results: Laboratory Tests 12/06/23 07:06: POC Whole Bld Glucose 121 H Home Medications and Allergies Home Medications: Ambulatory Orders Insulin Glargine [Lantus Solostar] See Rx Instructions .ROUTE .COMPLEX 12/05/23 Simvastatin [Zocor] 40 mg PO DAILY 12/05/23 glyBURIDE [Glyburide] 5 mg PO DAILY 12/05/23 metFORMIN [Glucophage] 500 mg PO BIDWM 12/05/23 Insulin Glargine [Lantus Solostar] See Rx Instructions .ROUTE .COMPLEX 12/05/23 Simvastatin [Zocor] 40 mg PO DAILY 12/05/23 glyBURIDE [Glyburide] 5 mg PO DAILY 12/05/23 metFORMIN [Glucophage] 500 mg PO BIDWM 12/05/23 Allergies/Adverse Reactions: Allergies Allergy/AdvReac Type Severity Reaction Status Date / Time No Known Drug Allergies Allergy Verified 12/06/23 07:09 Anes History & Medical History - Anesthetic History Anesthesia Complications: reports: No previous complications - Medical History Cardiovascular: reports: Hypertension, High cholesterol Pulmonary: reports: None Gastrointestinal: reports: None Urinary: reports: None Endocrine/Autoimmune: reports: Type 2 diabetes Smoking Status: Current every day smoker Exam General: Alert, Oriented x3 Dental: WNL Mouth Opening: Greater than 4 Fingerbreadths Neck Mobility: Normal Mallampati classification: II Thyromental Distance: greater than 6 cm Respiratory: Lungs clear Cardiovascular: Regular rate Plan Anesthesia Type: Total IV Consent for Procedure(s) Verified and Reviewed: Yes Code Status: Attempt Resuscitation ASA classification: 2-Mild systemic disease Is this case an emergency?: No
[2023-12-06] MEDS: SIMETHICONE 40 MG/0.6 ML 30 ML BOTTLE PO ONE (07:43)
[2023-12-06] MEDS: LACTATED RINGERS 600 ML IV ONE (08:03)
[2023-12-06 08:29] VITALS: BP 103/73; O2SAT 100
--- NOTE | 2023-12-06 13:54 | ANESTHESIA POST OP EVALUATION ---
Anesthesia Post Eval - Post Anesthesia Eval Vitals: Last Vital Signs Temp 36.7 C 12/06/23 08:18 Pulse 70 12/06/23 08:18 Resp 20 12/06/23 08:18 BP 103/73 12/06/23 08:18 Pulse Ox 100 12/06/23 08:18 O2 Flow Rate CV Function Including HR & BP: Stable Pain Control: Satisfactory Nausea & Vomiting: Negative Mental Status: Baseline Respiratory Status: Airway Patent Hydration Status: Satisfactory Anesthesia Complications: None
== END 2023-12-06 06:13 | disposition home or self-care (01) ==
LOC: SDS 06:12
PROVIDERS: ATTEND Surgery
PROC: 0DBP8ZZ Excision of Rectum, Via Natural or Artificial Opening Endoscopic (ICD-10-PCS; 2023-12-06)
PROC: 0DBM8ZZ Excision of Descending Colon, Via Natural or Artificial Opening Endoscopic (ICD-10-PCS; principal; 2023-12-06 07:30)
DX: R19.5 Other fecal abnormalities (principal); D12.8 Benign neoplasm of rectum; K63.5 Polyp of colon; F17.200 Nicotine dependence, unspecified, uncomplicated; E11.9 Type 2 diabetes mellitus without complications; Z79.4 Long term (current) use of insulin; Z79.84 Long term (current) use of oral hypoglycemic drugs
CPT/HCPCS: 45380; 45385; A9270; J7120